=== PATIENT | female | born 2005 | race Two or more races ===

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

== ENCOUNTER 2024-03-11 20:36 | Emergency (ER) | payer MEDICAID ==
[~2024-03-11] VITALS: Ht 165.1 cm; Wt 79.2 kg
[2024-03-11 20:45] VITALS: BP 113/66; PULSE 63; RESP 18; O2SAT 96
== END 2024-03-11 22:33 | disposition left against medical advice (07) ==
LOC: ER 20:36
DX: M79.89 Other specified soft tissue disorders (principal); Z53.21 Procedure and treatment not carried out due to patient leaving prior to being seen by health care provider